=== PATIENT | female | born 1995 | race Caucasian/White ===

== ENCOUNTER → 2023-10-20 09:36 | Outpatient (REF) | payer OTHER, SELFPAY ==
[2023-10-20 20:17] LABS: Rubella Negative
[2023-10-22 15:52] LABS: Quantiferon Mitogen minus NIL >10.00 IU/mL; Quantiferon NIL 0.02 IU/mL; Quantiferon TB Gold Plus Negative (Negative)
== END ==
LOC: OHS 09:36
PROVIDERS: ATTENDING PHYSICIAN Nurse Practitioner Family
DX: Z23 Encounter for immunization (principal)
CPT/HCPCS: 36415; 86480; 86735; 86762; 86765; 86787

== ENCOUNTER → 2024-04-13 08:19 | Outpatient (REF) | payer OTHER, SELFPAY ==
[2024-04-13 11:14] LABS: ALT (SGPT) 26 U/L (0-35); AST (SGOT) 24 U/L (14-36); Albumin 4.9 g/dl (3.5-5.0); Alkaline Phosphatase 71 U/L (38-126); Blood Urea Nitrogen 14 mg/dl (7-17); Calcium 9.7 mg/dl (8.4-10.2); Carbon Dioxide 24 mmol/L (22-30); Chloride 107 mmol/L (98-107); Glucose 88 mg/dl (70-99); Potassium 5.1 mmol/L (3.5-5.1); Sodium 144 mmol/L (135-145); Total Bilirubin 0.3 mg/dl (0.2-1.3); Total Protein 7.7 g/dl (6.3-8.2); eGFR > 60.00
[2024-04-13 11:23] LABS: FSH 2.5 mIU/ml; Luteinizing Hormone 2.59 mIU/ml
[2024-04-13 11:38] LABS: TSH 1.98 uIU/ml (0.47-4.68)
[2024-04-13 11:40] LABS: Cortisol, Random 6.6 ug/dl
== END ==
LOC: REG 08:19
PROVIDERS: ATTENDING PHYSICIAN Family Medicine
DX: N91.5 Oligomenorrhea, unspecified (principal)
CPT/HCPCS: 36415; 80053; 82533; 82627; 82671; 83001; 83002; 83498; 84144; 84146; 84270; 84402; 84403; 84443

== ENCOUNTER → 2024-12-26 07:27 | Outpatient (REF) | payer BC, SELFPAY ==
[2024-12-26 08:16] LABS: Hematocrit 36.4 % (37.0-47.0); Hemoglobin 12.4 g/dL (12.0-16.0); Mean Corp Hgb Conc. 34.1 g/dL (33.0-37.0); Mean Corpuscular Volume 89.4 fL (81.0-99.0); Nucleated Red Blood Cells % 0 %; Platelet Count 190 10^3/uL (130-400); Red Cell Dist. Width 12.4 % (11.5-14.5)
[2024-12-26 08:33] LABS: Urine Character Clear (Clear)
[2024-12-26 08:52] LABS: ALT (SGPT) 23 U/L (0-35); AST (SGOT) 18 U/L (14-36); Albumin 4.6 g/dl (3.5-5.0); Alkaline Phosphatase 61 U/L (38-126); Blood Urea Nitrogen 12 mg/dl (7-17); Calcium 9.9 mg/dl (8.4-10.2); Carbon Dioxide 23 mmol/L (22-30); Chloride 110 mmol/L (98-107); Glucose 87 mg/dl (70-99); HDL Cholesterol 51 mg/dl; LDL Cholesterol, Calculated 67 mg/dl; Potassium 4.4 mmol/L (3.5-5.1); Sodium 138 mmol/L (135-145); Total Protein 7.4 g/dl (6.3-8.2); Very Low Density Lipoprotein 11 mg/dl (0-30); eGFR > 60.00
[2024-12-26 09:36] LABS: Vitamin D, 25-OH*** 54.2 ng/mL (30-80)
[2024-12-26 09:45] LABS: Beta HCG Quantitative 2016.30 mIU/ml
[2024-12-26 10:03] LABS: Urine Squamous Cell >30 /LPF (Few)
== END ==
LOC: REG 07:27
PROVIDERS: ATTENDING PHYSICIAN Family Medicine; FAMILY PHYSICIAN Family Medicine
DX: Z00.00 Encounter for general adult medical examination without abnormal findings (principal); E55.9 Vitamin D deficiency, unspecified; Z33.1 Pregnant state, incidental
CPT/HCPCS: 36415; 80053; 80061; 81003; 81015; 82306; 84443; 84702; 85025

== ENCOUNTER → 2025-01-02 07:11 | Outpatient (REF) | payer BC, SELFPAY ==
[2025-01-02 13:02] LABS: Beta HCG Quantitative 20434.00 mIU/ml
== END ==
LOC: REG 07:11
PROVIDERS: ATTENDING PHYSICIAN Family Medicine
DX: N91.2 Amenorrhea, unspecified (principal)
CPT/HCPCS: 36415; 84702

== ENCOUNTER → 2025-01-18 07:30 | Outpatient (REF) | payer BC, SELFPAY ==
[2025-01-18 08:19] LABS: Hematocrit 33.9 % (37.0-47.0); Hemoglobin 11.6 g/dL (12.0-16.0); Mean Corp Hgb Conc. 34.2 g/dL (33.0-37.0); Mean Corpuscular Volume 88.5 fL (81.0-99.0); Nucleated Red Blood Cells % 0 %; Platelet Count 152 10^3/uL (130-400); Red Cell Dist. Width 12.4 % (11.5-14.5)
[2025-01-18 08:59] LABS: Urine Character Clear (Clear)
[2025-01-18 09:41] LABS: Glycohemoglobin (HgbA1c) 4.7 % (4.0-5.6)
[2025-01-18 14:30] LABS: Hepatitis B Surface Antigen Negative (Negative)
[2025-01-18 14:48] LABS: Hepatitis C Antibody Negative (Negative)
[2025-01-18 16:25] LABS: Beta HCG Quantitative 163330.00 mIU/ml
== END ==
LOC: REG 07:30
PROVIDERS: ATTENDING PHYSICIAN Nurse Practitioner Family; FAMILY PHYSICIAN Family Medicine
DX: Z32.01 Encounter for pregnancy test, result positive (principal)
CPT/HCPCS: 36415; 81003; 83036; 84702; 85025; 86704; 86706; 86762; 86780; 86803; 86850; 86900; 86901; 87086; 87340; 87389

== ENCOUNTER → 2025-02-19 08:53 | Outpatient (REF) | payer BC, SELFPAY | LOC: PNTC 08:53 | PROVIDERS: ATTENDING PHYSICIAN Obstetrics & Gynecology | DX: Z36.0 Encounter for antenatal screening for chromosomal anomalies (principal); Z36.82 Encounter for antenatal screening for nuchal translucency | CPT/HCPCS: 76801; 76813 ==

== ENCOUNTER → 2025-03-14 09:58 | Outpatient (REF) | payer BC, SELFPAY | LOC: PNTC 09:58 | PROVIDERS: ATTENDING PHYSICIAN Obstetrics & Gynecology | DX: O99.210 Obesity complicating pregnancy, unspecified trimester (principal) | CPT/HCPCS: 76805 ==

== ENCOUNTER → 2025-04-16 13:38 | Outpatient (REF) | payer BC, SELFPAY | LOC: PNTC 13:38 | PROVIDERS: ATTENDING PHYSICIAN Obstetrics & Gynecology | DX: Z36.3 Encounter for antenatal screening for malformations (principal); Z36.86 Encounter for antenatal screening for cervical length; O99.212 Obesity complicating pregnancy, second trimester | CPT/HCPCS: 76811; 76817 ==

== ENCOUNTER → 2025-05-18 07:21 | Outpatient (REF) | payer BC, SELFPAY ==
[2025-05-18 09:29] LABS: Hematocrit 31.0 % (37.0-47.0); Hemoglobin 10.8 g/dL (12.0-16.0); Mean Corp Hgb Conc. 34.8 g/dL (33.0-37.0); Mean Corpuscular Volume 91.2 fL (81.0-99.0); Nucleated Red Blood Cells % 0 %; Platelet Count 168 10^3/uL (130-400); Red Cell Dist. Width 13.0 % (11.5-14.5)
[2025-05-18 09:50] LABS: 1 Hour after 50gm 109 mg/dl
== END ==
LOC: REG 07:21
PROVIDERS: ATTENDING PHYSICIAN Student in an Organized Health Care Education/Training Program; FAMILY PHYSICIAN Family Medicine
DX: Z34.02 Encounter for supervision of normal first pregnancy, second trimester (principal); Z13.1 Encounter for screening for diabetes mellitus
CPT/HCPCS: 36415; 82950; 85025; 86780

== ENCOUNTER 2025-05-19 17:26 | Observation (INO) | payer BC, SELFPAY ==
[2025-05-19 17:43] VITALS: BP 145/82; BMI 33.5
== END 2025-05-19 18:59 | disposition home or self-care (01) ==
LOC: LDRP 17:26
PROVIDERS: ADMITTING PHYSICIAN Obstetrics & Gynecology; FAMILY PHYSICIAN Obstetrics & Gynecology
DX: O36.8120 Decreased fetal movements, second trimester, not applicable or unspecified (principal); Z3A.25 25 weeks gestation of pregnancy; Z83.3 Family history of diabetes mellitus; Z82.49 Family history of ischemic heart disease and other diseases of the circulatory system
CPT/HCPCS: 59025; G0378

== ENCOUNTER → 2025-05-28 07:44 | Outpatient (REF) | payer BC, SELFPAY | LOC: PNTC 07:44 | PROVIDERS: ATTENDING PHYSICIAN Obstetrics & Gynecology | DX: O99.213 Obesity complicating pregnancy, third trimester (principal) | CPT/HCPCS: 76816 ==